=== PATIENT | male | born 1940 | race Caucasian/White ===

== ENCOUNTER → 2020-06-08 | Outpatient (CLI) | payer MEDICARE ==
[~2020-06-08] MED LIST: ASPIR 8181 MG PO; CARDURA4 MG PO; CARTIA XT240 MG; CEFTIN250 MG/5 M PO; DOXAZOSIN MESYLA4 MG; IOPAMIDOL 200 MG/ML 20 ML VIAL IT ONE; IOPAMIDOL 300 MG/ML 15ML VIAL IT ONE; LIDOCAINE HCL 1% LOCAL INJ 20 ML VIAL ONE; LISINOPRIL2.5 MG PO; METFORMIN HCL500 M2 PO; OMEPRAZOLE40 MG PO; ZOCOR20 MG PO
[2020-06-08 08:58] LABS: HEMOGLOBIN 12.6 g/dL (14.0-18.0)
[2020-06-08 09:40] LABS: INR 0.87; PROTHROMBIN TIME 12.4 seconds (11.9-14.5)
[2020-06-08 09:41] LABS: PARTIAL THROMBOPLASTIN TIME 28.5 seconds (23.8-35.5)
== END ==
LOC: DX 08:31
PROVIDERS: ATTEND Family Medicine
DX: M47.816 Spondylosis without myelopathy or radiculopathy, lumbar region (principal)
CPT/HCPCS: 36415; 62304; 85014; 85049; 85610; 85730; J2001; Q9967

== ENCOUNTER 2020-08-14 17:12 | Inpatient (IN) | payer MEDICARE ==
[~2020-08-14] VITALS: Ht 188 cm; Wt 94.1 kg
[~2020-08-14 17:12] MED LIST changes: -CARTIA XT240 MG; +CARTIA XT240 MG PO; -IOPAMIDOL 200 MG/ML 20 ML VIAL IT ONE; -IOPAMIDOL 300 MG/ML 15ML VIAL IT ONE; -LIDOCAINE HCL 1% LOCAL INJ 20 ML VIAL ONE
[2020-08-14] MEDS ORDERED: ATORVASTATIN CA20 MG PO (17:50)
[2020-08-14] MEDS ORDERED: SODIUM CHLORIDE 0.9% 1000ML 1,000 ML IV SCH (18:00)
[2020-08-14 18:30] LABS: BASOPHILS # (AUTO) 0.1 (0.0-0.1); BASOPHILS % 0.8 % (0.0-1.0); EOSINOPHILS # (AUTO) 0.1 (0.0-0.4); EOSINOPHILS % 0.6 % (0.0-6.0); HEMATOCRIT 39.1 % (38.2-49.6); HEMOGLOBIN 12.7 g/dL (14.0-18.0); LYMPHOCYTES # (AUTO) 1.3 (1.0-3.2); LYMPHOCYTES % 14.2 % (18.0-39.1); MEAN CORPUSCULAR HEMOGLOBIN 27.7 pg (28-32); MEAN CORPUSCULAR HGB CONC 32.5 g/dL (31-35); MEAN CORPUSCULAR VOLUME 85.2 fL (81-99); MONOCYTES # (AUTO) 0.8 (0.2-0.8); MONOCYTES % 8.5 % (4.4-11.3); NEUTROPHILS # (AUTO) 6.7 (2.1-6.9); NEUTROPHILS % 75.5 % (38.7-80.0); PLATELET COUNT 181 x10e3/uL (140-360); RED BLOOD COUNT 4.59 x10e6/uL (4.3-5.7); RED CELL DISTRIBUTION WIDTH 13.1 % (11.7-14.4)
[2020-08-14 18:32] LABS: CLARITY,URINE CLEAR (CLEAR); KETONES,URINE NEGATIVE (NEGATIVE); LEUKOCYTE ESTERASE ,URINE NEGATIVE (NEGATIVE); NITRITE,URINE NEGATIVE (NEGATIVE); PROTEIN,URINE DIPSTICK 1+ (NEGATIVE)
[2020-08-14 18:33] LABS: COLOR,URINE YELLOW (YELLOW); URINE UROBILINOGEN 0.2 mg/dL (0.2 - 1)
[2020-08-14 18:40] LABS: RBC,URINE 21-50 /HPF (0-5); WBC,URINE (MAN) 0-5 /HPF (0-5)
[2020-08-14 18:41] LABS: BACTERIA,URINE FEW /HPF; EPITHELIAL CELLS,URINE FEW /LPF
[2020-08-14 18:49] LABS: ALBUMIN 4.1 g/dL (3.5-5.0); ALBUMIN/GLOBULIN RATIO 1.2 (0.8-2.0); ANION GAP 17.4 mmol/L (8-16); CALCIUM 8.7 mg/dL (8.4-10.2); CREATININE, SERUM 1.19 mg/dL (0.72-1.25); POTASSIUM 4.4 mmol/L (3.5-5.1)
[2020-08-14] MEDS ORDERED: ACETAMINOPHEN 325 MG TAB PO ONE (19:00)
[2020-08-14] MEDS: CEFEPIME 1 GM in SODIUM CHLORIDE 0.9% 50ML 50 ML IV SCH (19:10)
[2020-08-14] MEDS ORDERED: ONDANSETRON HCL INJ 2MG/ML 2ML 2 MG/ML VIAL IV STA (19:25)
[2020-08-14] MEDS ORDERED: MORPHINE SULFATE INJ 4 MG/ML INJ 1ML IV ONE (19:30)
[2020-08-14] MEDS ORDERED: ONDANSETRON HCL INJ 2MG/ML 2ML 2 MG/ML VIAL ONE (19:40)
[2020-08-14] MEDS ORDERED: MORPHINE SULFATE INJ 2 MG/ML SYR ONE (19:41)
[2020-08-14] MEDS: SODIUM CHLORIDE 0.9% 1000ML 1,000 ML IV SCH (19:45)
[2020-08-14 23:45] VITALS: BP 139/68
[2020-08-15] VITALS (8 sets, daily range): BP systolic 118–163; BP diastolic 67–75
[2020-08-15] MEDS: SODIUM CHLORIDE 0.9% 1000ML 1,000 ML IV SCH ×3 (01:02→20:08)
[2020-08-15] MEDS: ACETAMINOPHEN 325 MG TAB PO PRN ×4 (01:02→22:51)
[2020-08-15] MEDS: CEFEPIME 1 GM in SODIUM CHLORIDE 0.9% 50ML 50 ML IV SCH ×3 (05:08→22:51)
[2020-08-15 05:13] LABS: BASOPHILS # (AUTO) 0.1 (0.0-0.1); BASOPHILS % 0.8 % (0.0-1.0); EOSINOPHILS # (AUTO) 0.1 (0.0-0.4); EOSINOPHILS % 0.6 % (0.0-6.0); HEMATOCRIT 34.5 % (38.2-49.6); HEMOGLOBIN 11.2 g/dL (14.0-18.0); LYMPHOCYTES % 21.6 % (18.0-39.1); MEAN CORPUSCULAR HEMOGLOBIN 27.8 pg (28-32); MEAN CORPUSCULAR HGB CONC 32.5 g/dL (31-35); MEAN CORPUSCULAR VOLUME 85.6 fL (81-99); MONOCYTES % 10.4 % (4.4-11.3); NEUTROPHILS # (AUTO) 6.2 (2.1-6.9); PLATELET COUNT 171 x10e3/uL (140-360); RED BLOOD COUNT 4.03 x10e6/uL (4.3-5.7)
[2020-08-15 05:40] LABS: ALANINE AMINOTRANSFERASE 16 IU/L (0-55); ALBUMIN 3.3 g/dL (3.5-5.0); ALBUMIN/GLOBULIN RATIO 1.1 (0.8-2.0); ALKALINE PHOSPHATASE 63 IU/L (40-150); ANION GAP 15.2 mmol/L (8-16); BLOOD UREA NITROGEN 16 mg/dL (7-26); BUN/CREATININE RATIO 14 (6-25); CALCIUM 8.1 mg/dL (8.4-10.2); CARBON DIOXIDE 21 mmol/L (22-29); CHLORIDE 106 mmol/L (98-107); CREATININE, SERUM 1.12 mg/dL (0.72-1.25); EST GLOMERULAR FILTRATION RATE > 60 ML/MIN (60-); GLUCOSE 132 mg/dL (74-118); POTASSIUM 4.2 mmol/L (3.5-5.1); SODIUM 138 mmol/L (136-145)
[2020-08-15] MEDS ORDERED: CEFTRIAXONE 1 GM in SODIUM CHLORIDE 0.9% 50ML 50 ML IV SCH (09:00)
[2020-08-15] MEDS ORDERED: DICLOFENAC SODI50 MG PO (10:51)
[2020-08-15] MEDS ORDERED: OXYBUTYNIN CHLOR5 MG PO (10:51)
[2020-08-15] MEDS: IBUPROFEN 600 MG TAB PO SCH (20:08)
[2020-08-15] MEDS: DILTIAZEM HCL ER 120 MG CAP PO SCH (21:18)
[2020-08-15] MEDS: DOXAZOSIN MESYLATE 2 MG TAB PO SCH (21:18)
[2020-08-15] MEDS: ASPIRIN 81 MG CHEW TAB PO SCH (21:18)
[2020-08-15] MEDS: ATORVASTATIN 20 MG TAB PO SCH (21:18)
[2020-08-15] MEDS: METFORMIN HCL 500 MG TAB CR PO SCH (21:18)
[2020-08-15] MEDS: OXYBUTYNIN CHLORIDE XL 5 MG TAB PO SCH (21:18)
[2020-08-15] MEDS: PANTOPRAZOLE SOD 40 MG TABEC PO SCH (21:19)
[2020-08-15] MEDS: LISINOPRIL 2.5 MG TAB PO SCH (21:19)
[2020-08-16] VITALS (8 sets, daily range): BP systolic 109–163; BP diastolic 58–94
[2020-08-16] MEDS: SODIUM CHLORIDE 0.9% 1000ML 1,000 ML IV SCH ×3 (04:04→17:06)
[2020-08-16] MEDS: ACETAMINOPHEN 325 MG TAB PO PRN ×3 (05:44→22:15)
[2020-08-16] MEDS: CEFEPIME 1 GM in SODIUM CHLORIDE 0.9% 50ML 50 ML IV SCH ×3 (05:58→21:24)
[2020-08-16 06:00] LABS: BASOPHILS # (AUTO) 0.1 (0.0-0.1); BASOPHILS % 0.7 % (0.0-1.0); EOSINOPHILS # (AUTO) 0.2 (0.0-0.4); EOSINOPHILS % 2.9 % (0.0-6.0); HEMATOCRIT 34.1 % (38.2-49.6); HEMOGLOBIN 10.8 g/dL (14.0-18.0); LYMPHOCYTES # (AUTO) 1.8 (1.0-3.2); LYMPHOCYTES % 24.6 % (18.0-39.1); MEAN CORPUSCULAR HEMOGLOBIN 27.4 pg (28-32); MEAN CORPUSCULAR HGB CONC 31.7 g/dL (31-35); MEAN CORPUSCULAR VOLUME 86.5 fL (81-99); MONOCYTES # (AUTO) 0.8 (0.2-0.8); MONOCYTES % 11.8 % (4.4-11.3); NEUTROPHILS # (AUTO) 4.2 (2.1-6.9); NEUTROPHILS % 59.4 % (38.7-80.0); PLATELET COUNT 169 x10e3/uL (140-360); RED BLOOD COUNT 3.94 x10e6/uL (4.3-5.7)
[2020-08-16 06:15] LABS: BLOOD UREA NITROGEN 16 mg/dL (7-26); BUN/CREATININE RATIO 15 (6-25); CARBON DIOXIDE 21 mmol/L (22-29); CHLORIDE 110 mmol/L (98-107); EST GLOMERULAR FILTRATION RATE > 60 ML/MIN (60-); GLUCOSE 118 mg/dL (74-118); SODIUM 140 mmol/L (136-145)
[2020-08-16] MEDS: ASPIRIN 81 MG CHEW TAB PO SCH (21:22)
[2020-08-16] MEDS: DILTIAZEM HCL ER 120 MG CAP PO SCH (21:23)
[2020-08-16] MEDS: OXYBUTYNIN CHLORIDE XL 5 MG TAB PO SCH (21:24)
[2020-08-16] MEDS: PANTOPRAZOLE SOD 40 MG TABEC PO SCH (21:24)
[2020-08-16] MEDS: METFORMIN HCL 500 MG TAB CR PO SCH (21:24)
[2020-08-16] MEDS: ATORVASTATIN 20 MG TAB PO SCH (21:24)
[2020-08-16] MEDS: DOXAZOSIN MESYLATE 2 MG TAB PO SCH (21:24)
[2020-08-16] MEDS: LISINOPRIL 2.5 MG TAB PO SCH (21:24)
[2020-08-16] MEDS: IBUPROFEN 600 MG TAB PO SCH (21:24)
[2020-08-17] MEDS: SODIUM CHLORIDE 0.9% 1000ML 1,000 ML IV SCH (01:00)
[2020-08-17 01:37] VITALS: BP 121/63
[2020-08-17 05:22] VITALS: BP 122/67
[2020-08-17] MEDS: CEFEPIME 1 GM in SODIUM CHLORIDE 0.9% 50ML 50 ML IV SCH (05:53)
[2020-08-17 08:09] VITALS: BP 130/77
[2020-08-17 08:11] VITALS: BP 130/71
[2020-08-17 11:36] VITALS: BP 128/65
[2020-08-17] MEDS ORDERED: KEFLEX125 MG/5 M PO (11:43)
== END 2020-08-17 12:07 | disposition home or self-care (01) | DRG 690 ==
LOC: ER 18:22 → ERHOLD 21:16 → MED/SURG2 23:16
PROVIDERS: ADMIT Family Medicine; ATTEND Family Medicine
DX: N39.0 Urinary tract infection, site not specified (principal); N17.9 Acute kidney failure, unspecified; I10 Essential (primary) hypertension; E11.9 Type 2 diabetes mellitus without complications; M54.10 Radiculopathy, site unspecified; E78.5 Hyperlipidemia, unspecified; R32 Unspecified urinary incontinence; N40.0 Benign prostatic hyperplasia without lower urinary tract symptoms; C61 Malignant neoplasm of prostate; N32.81 Overactive bladder; Z20.822 Contact with and (suspected) exposure to COVID-19; E86.0 Dehydration
CPT/HCPCS: 36415; 71045; 74176; 80048; 80053; 81001; 82948; 83605; 85025; 87040; 87086; 87400; 96361; 99251; 99284; J0692; J2270; J2405; J7030; U0002

== ENCOUNTER → 2021-08-10 | Day surgery (SDC) | payer MEDICARE ==
[2021-08-08 09:40] LABS: BASOPHILS # (AUTO) 0.1 (0.0-0.1); EOSINOPHILS # (AUTO) 0.1 (0.0-0.4); EOSINOPHILS % 2.3 % (0.0-6.0); HEMATOCRIT 38.7 % (38.2-49.6); HEMOGLOBIN 12.1 g/dL (14.0-18.0); LYMPHOCYTES # (AUTO) 1.8 (1.0-3.2); LYMPHOCYTES % 29.1 % (18.0-39.1); MEAN CORPUSCULAR HEMOGLOBIN 28.3 pg (28-32); MEAN CORPUSCULAR HGB CONC 31.3 g/dL (31-35); MEAN CORPUSCULAR VOLUME 90.4 fL (81-99); MONOCYTES # (AUTO) 0.4 (0.2-0.8); MONOCYTES % 6.3 % (4.4-11.3); NEUTROPHILS # (AUTO) 3.8 (2.1-6.9); NEUTROPHILS % 60.8 % (38.7-80.0); PLATELET COUNT 175 x10e3/uL (140-360); RED BLOOD COUNT 4.28 x10e6/uL (4.3-5.7); RED CELL DISTRIBUTION WIDTH 13.3 % (11.7-14.4)
[2021-08-08 10:17] LABS: ANION GAP 14.9 mmol/L (8-16); CALCIUM 8.5 mg/dL (8.4-10.2); CREATININE, SERUM 1.06 mg/dL (0.72-1.25); POTASSIUM 4.9 mmol/L (3.5-5.1)
[~2021-08-10] MED LIST changes: +ATORVASTATIN CA20 MG PO; +BUPIVACAINE 0.25% 30ML SDV ONE; +DICLOFENAC SODI50 MG PO; +FENTANYL CITRATE/PF 100MCG/2 ML INJ ONE; +IOPAMIDOL 200 MG/ML 20 ML VIAL IT ONE; +KEFLEX125 MG/5 M PO; +LIDOCAINE HCL 1% 30ML-PF VIAL ONE; +MIDAZOLAM HCL 2 MG/2 ML VIAL ONE; +OXYBUTYNIN CHLOR5 MG PO; +POVIDONE IODINE 0.05% 0.05 % ML PO ONE; +PROPOFOL IV EMULSION 10 MG/ML 20 ML VIAL ONE
[2021-08-10 07:05] VITALS: BP 113/70
== END | disposition home or self-care (01) ==
LOC: OR 07:04
PROVIDERS: ATTEND Physical Medicine & Rehabilitation Pain Medicine
DX: M47.896 Other spondylosis, lumbar region (principal); M51.26 Other intervertebral disc displacement, lumbar region; M48.062 Spinal stenosis, lumbar region with neurogenic claudication; M46.1 Sacroiliitis, not elsewhere classified; R93.7 Abnormal findings on diagnostic imaging of other parts of musculoskeletal system; K21.9 Gastro-esophageal reflux disease without esophagitis; I10 Essential (primary) hypertension; E78.5 Hyperlipidemia, unspecified; R00.1 Bradycardia, unspecified; E11.21 Type 2 diabetes mellitus with diabetic nephropathy; H91.90 Unspecified hearing loss, unspecified ear; R53.1 Weakness; R06.83 Snoring; Z01.810 Encounter for preprocedural cardiovascular examination; Z01.812 Encounter for preprocedural laboratory examination; Z20.822 Contact with and (suspected) exposure to COVID-19; Z79.84 Long term (current) use of oral hypoglycemic drugs; Z79.899 Other long term (current) drug therapy; Z85.46 Personal history of malignant neoplasm of prostate
CPT/HCPCS: 36415 ×2; 64493; 64494; 64495; 77003; 80048; 82948; 85025; 93005; J2001; J2250; J2704; J3010; Q9967; U0002

== ENCOUNTER → 2021-09-14 | Day surgery (SDC) | payer MEDICARE ==
[~2021-09-14] MED LIST changes: -FENTANYL CITRATE/PF 100MCG/2 ML INJ ONE; +LIDOCAINE HCL 2% LOCAL INJ 5 ML SDV VIAL INJ ONE; +MELOXICAM7.5 MG PO; +VIGAMOX3 ML OS
[2021-09-14 07:35] VITALS: BP 119/73
== END | disposition home or self-care (01) ==
LOC: OR 07:05
PROVIDERS: ATTEND Physical Medicine & Rehabilitation Pain Medicine
DX: M47.896 Other spondylosis, lumbar region (principal); M51.26 Other intervertebral disc displacement, lumbar region; M48.062 Spinal stenosis, lumbar region with neurogenic claudication; M46.1 Sacroiliitis, not elsewhere classified; R93.7 Abnormal findings on diagnostic imaging of other parts of musculoskeletal system; I10 Essential (primary) hypertension; E78.5 Hyperlipidemia, unspecified; E11.40 Type 2 diabetes mellitus with diabetic neuropathy, unspecified; K21.9 Gastro-esophageal reflux disease without esophagitis; Z01.812 Encounter for preprocedural laboratory examination; Z20.822 Contact with and (suspected) exposure to COVID-19; Z79.84 Long term (current) use of oral hypoglycemic drugs; Z79.899 Other long term (current) drug therapy
CPT/HCPCS: 0223U; 36415 ×2; 64493; 64494; 64495; 77003; 82948; J2001 ×2; J2250; J2704; Q9967

== ENCOUNTER → 2021-12-01 | Outpatient (RCR) | payer MEDICARE ==
[~2021-12-01] MED LIST changes: -BUPIVACAINE 0.25% 30ML SDV ONE; -IOPAMIDOL 200 MG/ML 20 ML VIAL IT ONE; -LIDOCAINE HCL 1% 30ML-PF VIAL ONE; -LIDOCAINE HCL 2% LOCAL INJ 5 ML SDV VIAL INJ ONE; -MIDAZOLAM HCL 2 MG/2 ML VIAL ONE; -POVIDONE IODINE 0.05% 0.05 % ML PO ONE; -PROPOFOL IV EMULSION 10 MG/ML 20 ML VIAL ONE
== END ==
LOC: PT 11-21 11:04
PROVIDERS: ATTEND Physical Medicine & Rehabilitation Pain Medicine
DX: M47.896 Other spondylosis, lumbar region (principal); M51.26 Other intervertebral disc displacement, lumbar region; M53.86 Other specified dorsopathies, lumbar region; M62.81 Muscle weakness (generalized); Z91.81 History of falling; R29.6 Repeated falls

== ENCOUNTER 2021-12-03 12:53 | Inpatient (IN) | payer MEDICARE ==
[~2021-12-03] VITALS: Ht 185.4 cm; Wt 93.9 kg
[2021-12-03] MEDS ORDERED: Morphine 4mg INJECTION 4 MG/ML INJ IV PRN (14:15)
[2021-12-03] MEDS ORDERED: ONDANSETRON HCL INJ 2MG/ML 2ML 2 MG/ML VIAL IV PRN (14:15)
[2021-12-03 15:57] VITALS: BP 152/71
[2021-12-03 16:08] VITALS: BP 152/71
[2021-12-03] MEDS ORDERED: ACETAMINOPHEN 325 MG TAB PO PRN (17:00)
[2021-12-03 20:00] VITALS: BP 152/71
[2021-12-03] MEDS: OXYBUTYNIN CHLORIDE 5 MG TAB PO SCH ×2 (20:41→22:27)
[2021-12-03] MEDS: ATORVASTATIN 20 MG TAB PO SCH ×2 (20:41→22:27)
[2021-12-03] MEDS: DOXAZOSIN MESYLATE 2 MG TAB PO SCH ×2 (20:41→22:27)
[2021-12-03] MEDS: METFORMIN HCL 500 MG TAB CR PO SCH ×2 (20:42→22:27)
[2021-12-03] MEDS: LISINOPRIL 2.5 MG TAB PO SCH ×2 (20:42→22:28)
[2021-12-03] MEDS: PANTOPRAZOLE SOD 40 MG TABEC PO SCH ×2 (20:42→22:28)
[2021-12-03 22:59] VITALS: BP 140/67
[2021-12-04] VITALS (8 sets, daily range): BP systolic 131–149; BP diastolic 66–82
[2021-12-04 05:35] LABS: BASOPHILS # (AUTO) 0.1 (0.0-0.1); EOSINOPHILS # (AUTO) 0.1 (0.0-0.4); EOSINOPHILS % 1.5 % (0.0-6.0); HEMATOCRIT 34.8 % (38.2-49.6); HEMOGLOBIN 10.8 g/dL (14.0-18.0); LYMPHOCYTES # (AUTO) 2.1 (1.0-3.2); LYMPHOCYTES % 25.5 % (18.0-39.1); MEAN CORPUSCULAR VOLUME 90.2 fL (81-99); MONOCYTES # (AUTO) 0.6 (0.2-0.8); MONOCYTES % 7.6 % (4.4-11.3); NEUTROPHILS # (AUTO) 5.2 (2.1-6.9); PLATELET COUNT 221 x10e3/uL (140-360); RED BLOOD COUNT 3.86 x10e6/uL (4.3-5.7)
[2021-12-04 06:01] LABS: ALBUMIN 3.3 g/dL (3.5-5.0); ALBUMIN/GLOBULIN RATIO 1.1 (0.8-2.0); ANION GAP 14.2 mmol/L (8-16); CALCIUM 8.7 mg/dL (8.4-10.2); CREATININE, SERUM 1.07 mg/dL (0.72-1.25); POTASSIUM 4.2 mmol/L (3.5-5.1)
[2021-12-04] MEDS: Vancomycin IV 1 GM in SODIUM CHLORIDE 0.9% 250ML 250 ML IV SCH (16:48)
[2021-12-05] VITALS (7 sets, daily range): BP systolic 133–163; BP diastolic 70–85
[2021-12-05] MEDS ORDERED: BUPIVACAINE HCL 0.25% 10ML MPF VIAL INJ ONE (09:34)
[2021-12-05] MEDS ORDERED: MUPIROCIN 2% OINT 22 GM TUBE ONE (09:34)
[2021-12-05] MEDS ORDERED: LIDOCAINE HCL 1% LOCAL INJ 20 ML VIAL ONE ×2 (09:34→09:46)
[2021-12-05] MEDS: Vancomycin IV 1 GM in SODIUM CHLORIDE 0.9% 250ML 250 ML IV SCH ×2 (10:55→21:00)
[2021-12-05] MEDS ORDERED: FENTANYL CITRATE/PF 100MCG/2 ML INJ ONE (12:11)
[2021-12-05] MEDS ORDERED: PROPOFOL IV EMULSION 10 MG/ML 20 ML VIAL ONE (17:37)
[2021-12-05] MEDS ORDERED: POVIDONE IODINE 0.05% 0.05 % ML PO ONE (17:37)
[2021-12-05] MEDS ORDERED: DEXTROSE 50% SYRINGE 50 ML IV PRN (18:00)
[2021-12-05] MEDS: LISINOPRIL 2.5 MG TAB PO SCH (21:00)
[2021-12-05] MEDS: LACTOBACILLUS ACIDOPHILUS CAPSULE PO SCH (21:00)
[2021-12-05] MEDS: OXYBUTYNIN CHLORIDE 5 MG TAB PO SCH (21:00)
[2021-12-05] MEDS: PANTOPRAZOLE SOD 40 MG TABEC PO SCH (21:00)
[2021-12-05] MEDS: INSULIN LISPRO 100 UNIT/1 ML 3ML VIAL SQ SCH (21:00)
[2021-12-05] MEDS: DOXAZOSIN MESYLATE 2 MG TAB PO SCH (21:00)
[2021-12-05] MEDS: ATORVASTATIN 20 MG TAB PO SCH (21:00)
[2021-12-06] VITALS (9 sets, daily range): BP systolic 113–155; BP diastolic 64–80
[2021-12-06] MEDS: INSULIN LISPRO 100 UNIT/1 ML 3ML VIAL SQ SCH ×4 (07:30→21:00)
[2021-12-06] MEDS: Vancomycin IV 1 GM in SODIUM CHLORIDE 0.9% 250ML 250 ML IV SCH ×2 (10:00→21:04)
[2021-12-06] MEDS: LACTOBACILLUS ACIDOPHILUS CAPSULE PO SCH ×2 (10:08→18:30)
[2021-12-06] MEDS: OXYBUTYNIN CHLORIDE 5 MG TAB PO SCH (21:04)
[2021-12-06] MEDS: LISINOPRIL 2.5 MG TAB PO SCH (21:05)
[2021-12-06] MEDS: PANTOPRAZOLE SOD 40 MG TABEC PO SCH (21:06)
[2021-12-06] MEDS: DOXAZOSIN MESYLATE 2 MG TAB PO SCH (21:06)
[2021-12-06] MEDS: ATORVASTATIN 20 MG TAB PO SCH (21:06)
[2021-12-07 00:47] VITALS: BP 120/64
[2021-12-07 05:46] VITALS: BP 139/78
[2021-12-07] MEDS: INSULIN LISPRO 100 UNIT/1 ML 3ML VIAL SQ SCH ×2 (07:30→11:30)
[2021-12-07 08:33] VITALS: BP 127/78
[2021-12-07 08:46] VITALS: BP 127/78
[2021-12-07] MEDS: LACTOBACILLUS ACIDOPHILUS CAPSULE PO SCH (09:10)
[2021-12-07] MEDS ORDERED: LOPERAMIDE HCL 2 MG CAP PO PRN (10:00)
[2021-12-07] MEDS ORDERED: LOPERAMIDE HCL 2 MG CAP PO ONE (10:30)
[2021-12-07] MEDS: Vancomycin IV 1 GM in SODIUM CHLORIDE 0.9% 250ML 250 ML IV SCH (11:30)
[2021-12-07] MEDS ORDERED: SODIUM CHLORIDE 0.9% 100 ML ONE (11:55)
[2021-12-07 12:02] VITALS: BP 128/72
[2021-12-07 15:54] VITALS: BP 148/78
[2021-12-07] MEDS ORDERED: ONDANSETRON HCL 4 MG ORAL DISINTEGRATING TAB PO PRN (16:00)
[2021-12-08] MEDS ORDERED: CEFTRIAXONE 2 GM in SODIUM CHLORIDE 0.9% 100 ML IV SCH (09:00)
== END 2021-12-07 18:18 | disposition home or self-care (01) | DRG 496 ==
LOC: ER 13:00 → ERHOLD 14:14 → MED/SURG2 15:42 → OBSVTOIN 12-04 09:00
PROVIDERS: ADMIT Family Medicine; ATTEND Family Medicine
PROC: 02HV33Z Insertion of Infusion Device into Superior Vena Cava, Percutaneous Approach (ICD-10-PCS; 2021-12-04)
PROC: 0P9 Upper Bones, Drainage (ICD-10-PCS; principal; 2021-12-05 09:26)
DX: M84.642A Pathological fracture in other disease, left hand, initial encounter for fracture (principal); L02.512 Cutaneous abscess of left hand; M86.142 Other acute osteomyelitis, left hand; L03.012 Cellulitis of left finger; E11.69 Type 2 diabetes mellitus with other specified complication; E11.42 Type 2 diabetes mellitus with diabetic polyneuropathy; I10 Essential (primary) hypertension; E78.5 Hyperlipidemia, unspecified; Z85.46 Personal history of malignant neoplasm of prostate; M89.742 Major osseous defect, left hand; B96.1 Klebsiella pneumoniae [K. pneumoniae] as the cause of diseases classified elsewhere
CPT/HCPCS: 36415; 36569; 71045; 80053; 80202; 82948; 85025; 87071; 87075; 87186; 87205; 99284; G0378; J0696; J2001; J2270; J2543; J3010; J3370; J7050

== ENCOUNTER 2021-12-04 06:41 | Outpatient (RCR) | payer MEDICARE | END 2022-01-01 | LOC: PT 06:41 | PROVIDERS: ATTEND Physical Medicine & Rehabilitation Pain Medicine | DX: M47.896 Other spondylosis, lumbar region (principal); M51.26 Other intervertebral disc displacement, lumbar region; M53.86 Other specified dorsopathies, lumbar region; M62.81 Muscle weakness (generalized); Z91.81 History of falling; R29.6 Repeated falls ==

== ENCOUNTER 2022-04-02 08:59 | Outpatient (RCR) | payer MEDICARE ==
[~2022-04-02 08:59] MED LIST changes: +GLIMEPIRIDE2 MG PO
== END 2022-04-03 ==
LOC: PT 08:59
PROVIDERS: ATTEND Physical Medicine & Rehabilitation Pain Medicine
DX: G89.4 Chronic pain syndrome (principal); M47.896 Other spondylosis, lumbar region

== ENCOUNTER 2022-04-27 08:00 | Outpatient (RCR) | payer MEDICARE | END 2022-05-01 | LOC: PT 08:00 | PROVIDERS: ATTEND Physical Medicine & Rehabilitation Pain Medicine | DX: M47.896 Other spondylosis, lumbar region (principal) ==

== ENCOUNTER → 2022-07-26 | Day surgery (SDC) | payer MEDICARE ==
[2022-07-24 10:09] LABS: BASOPHILS # (AUTO) 0.1 (0.0-0.1); BASOPHILS % 0.9 % (0.0-1.0); EOSINOPHILS # (AUTO) 0.2 (0.0-0.4); EOSINOPHILS % 3.1 % (0.0-6.0); HEMATOCRIT 37.2 % (38.2-49.6); HEMOGLOBIN 11.7 g/dL (14.0-18.0); LYMPHOCYTES # (AUTO) 1.7 (1.0-3.2); LYMPHOCYTES % 25.8 % (18.0-39.1); MEAN CORPUSCULAR HEMOGLOBIN 28.3 pg (28-32); MEAN CORPUSCULAR HGB CONC 31.5 g/dL (31-35); MEAN CORPUSCULAR VOLUME 90.1 fL (81-99); MONOCYTES # (AUTO) 0.5 (0.2-0.8); MONOCYTES % 7.2 % (4.4-11.3); NEUTROPHILS # (AUTO) 4.1 (2.1-6.9); NEUTROPHILS % 62.8 % (38.7-80.0); PLATELET COUNT 173 x10e3/uL (140-360); RED BLOOD COUNT 4.13 x10e6/uL (4.3-5.7); RED CELL DISTRIBUTION WIDTH 13.2 % (11.7-14.4)
[~2022-07-26] MED LIST changes: +IOPAMIDOL 200 MG/ML 20 ML VIAL IT ONE; +LACTATED RINGER'S 1,000 ML ONE; +LIDOCAINE HCL 1% 30ML-PF VIAL ONE; +LIDOCAINE HCL 2% LOCAL INJ 5 ML SDV VIAL INJ ONE; +MYRBETRIQ50 MG PO; +POVIDONE IODINE 0.05% 0.05 % ML PO ONE; +PROPOFOL IV EMULSION 10 MG/ML 20 ML VIAL ONE; +TRIAMCINOLONE ACET 40 MG/ML VIAL ONE; +TYLENOL EXTRA500 MG PO
[2022-07-26 07:02] VITALS: TEMP 97.1
[2022-07-26 07:15] VITALS: BP 128/68; PULSE 67; RESP 16; O2SAT 99
== END | disposition home or self-care (01) ==
LOC: OR 07:30
PROVIDERS: ATTEND Physical Medicine & Rehabilitation Pain Medicine
DX: M46.1 Sacroiliitis, not elsewhere classified (principal); M48.061 Spinal stenosis, lumbar region without neurogenic claudication; M47.896 Other spondylosis, lumbar region; I10 Essential (primary) hypertension; E11.40 Type 2 diabetes mellitus with diabetic neuropathy, unspecified; E78.5 Hyperlipidemia, unspecified; H91.90 Unspecified hearing loss, unspecified ear; K21.9 Gastro-esophageal reflux disease without esophagitis; Z01.810 Encounter for preprocedural cardiovascular examination; Z01.812 Encounter for preprocedural laboratory examination; Z79.1 Long term (current) use of non-steroidal anti-inflammatories (NSAID); Z79.84 Long term (current) use of oral hypoglycemic drugs; Z86.16 Personal history of COVID-19; Z87.01 Personal history of pneumonia (recurrent)
CPT/HCPCS: 36415 ×2; 82948; 85025; 93005; G0260; J2001 ×2; J2704; J3301; J7121; Q9967; 77003

== ENCOUNTER → 2022-09-03 | Outpatient (CLI) | payer MEDICARE ==
[~2022-09-03] MED LIST changes: -IOPAMIDOL 200 MG/ML 20 ML VIAL IT ONE; +IOPAMIDOL 370 MG/ML 100 ML INFUS..BTL INJ ONE; -LACTATED RINGER'S 1,000 ML ONE; -LIDOCAINE HCL 1% 30ML-PF VIAL ONE; -LIDOCAINE HCL 2% LOCAL INJ 5 ML SDV VIAL INJ ONE; -POVIDONE IODINE 0.05% 0.05 % ML PO ONE; -PROPOFOL IV EMULSION 10 MG/ML 20 ML VIAL ONE; +SODIUM CHLORIDE 0.9% 250ML 250 ML ONE; -TRIAMCINOLONE ACET 40 MG/ML VIAL ONE
[2022-09-03 16:20] LABS: CREATININE, SERUM 0.94 mg/dL (0.72-1.25)
== END ==
LOC: CT 15:24
PROVIDERS: ATTEND Urology
DX: R31.21 Asymptomatic microscopic hematuria (principal)
CPT/HCPCS: 36415; 74178; 82565; 84520; J7050; Q9967